=== PATIENT | female | born 1955 | race Caucasian/White ===

== ENCOUNTER 2017-11-22 05:12 | Day surgery (SDC) | payer MEDICARE ==
[~2017-11-22] VITALS: Ht 154.9 cm; Wt 68.0 kg
--- NOTE | ~2017-11-22 | OP ---
PATIENT NAME: CHERELLE ROSSI MEDICAL RECORD: [id number] :55 LOCATION:[facility] ADMISSION DATE: SURGEON: LEYDA HODGES, KRISTEN DICKEY DATE OF OPERATION: 11/22/2017 PREOPERATIVE DIAGNOSES: 1. Rotator cuff tear of the right shoulder. 2. Biceps tendinitis of the right shoulder. 3. Acromioclavicular arthritis of the right shoulder. 4. Impingement syndrome of the right shoulder. POSTOPERATIVE DIAGNOSES: 1. Rotator cuff tear of the right shoulder. 2. Biceps tendinitis of the right shoulder. 3. Acromioclavicular arthritis of the right shoulder. 4. Impingement syndrome of the right shoulder. PROCEDURES: 1. Arthroscopic rotator cuff repair. 2. Arthroscopic biceps tenodesis. 3. Arthroscopic distal clavicle excision done through separate incision -- 1 cm. 4. Arthroscopic subacromial decompression, acromioplasty, and bursectomy. SURGEON: Kristen Delacruz MD ANESTHESIA: General. INTRAOPERATIVE COMPLICATIONS: None. SUMMARY OF PATHOLOGIC FINDINGS: The patient actually had 2 rotator cuff tears, severe biceps tendinitis, downward sloping of the acromion with excoriation of the coracoacromial ligament as well as a grade IV chondromalacia of the acromioclavicular joint. OPERATIVE SUMMARY IN DETAIL: After obtaining the appropriate preoperative orthopedic surgery consent as well as anesthetic consultation, evaluation, and clearance, the patient was brought to the operating room and placed on the operating table in supine position. After general laryngeal mask airway was administered, the patient was placed in left lateral decubitus position. All pressure points were well padded to include down leg peroneal pad as well as axillary roll. The patient was held firmly to the operating table using the vacuum pack suction system. Right upper extremity and shoulder were then prepped and draped in a routine sterile fashion. The arm was held in the Arthrex traction boom at 30 degrees of forward flexion, 30 degrees of abduction with 10 pounds of traction laterally. Arthroscopy was established in the glenohumeral joint. The glenohumeral joint itself was essentially pristine. I did not appreciate a rotator cuff tear from the articular side of the rotator cuff. The biceps tendon did have severe biceps tendinitis. Arthroscopy was then established in the subacromial space. While on subacromial space, the Superior tissue ablation system was utilized to denude the undersurface of the acromion of all soft tissue elements. A 5-0 barrel bur was used to perform acromioplasty at the level of acromioclavicular joint. Further inspection at this point showed the rotator cuff tear directly over the biceps tendon as well as more posteriorly and lateral at the posterior aspect of the supraspinatus OPERATIVE REPORT [id number] CHERELLE ROSSI. At this point, through a separate anterior arthroscopic portal under direct arthroscopic visualization, 1 cm of the distal clavicle was excised. Next, the biceps tendon was grasped, held firmly while a Scorpion was used to pass FiberTape to the biceps tendon. The biceps tendon was then released using the same FiberTape to maintain the appropriate tension. The biceps was tenodesed in the middle aspect of the bicipital groove. The 2 tails of this were then used to reapproximate the rotator cuff tear over the biceps tendon in a running baseball type stitch. This was anchored laterally using a 4.75 SwiveLock. The tails of this were then used to fix the second small rotator cuff tear after decortication of the supraspinatus tendinous footprint. This was anchored laterally again using a 4.75 SwiveLock from Arthrex. Having completed this, arthroscopy portals were closed in routine interrupted fashion. Sterile dressings were applied. The patient was awakened and taken to the recovery room in stable condition. All final needle and sponge counts were correct. TRANSINT:[id number] Voice Confirmation ID: [id number] DOCUMENT ID: [id number] LEYDA HODGES, KRISTEN DICKEY CC: [id number] DICTATION DATE: 11/22/17828 SEAT COVER CUTTER: 11/22/[address] [facility] 11/22/17 [facility] [address] [place] [address]
[~2017-11-22 05:12] MED LIST: ATIVAN1 MG PO; COZAAR100 MG PO; CYCLOBENZAPRINE10 MG PO; DESERYL100 MG PO; FUROSEMIDE20 MG; LOMOTIL TABLET1 TAB PO; NORCO 7.5/325 T1 TA1 PO; NORVASC5 MG PO; PANTOPRAZOLE SOD DR; PHENERGAN25 M1 PO; PRAVASTATIN SOD10 MG PO; PROPRANOLOL HCL80 MG PO; PROZAC40 MG PO
[2017-11-22] MEDS ORDERED: PROTONIX40 MG PO (06:08)
[2017-11-22 06:11] VITALS: BP 116/75; Ht 154.9 cm; Wt 68.0 kg
[2017-11-22 06:30] LABS: HEMATOCRIT 41.1 % (36.0-48.0); MCHC 31.6 g/dL (31.0-37.0); MCV 94.9 fL (80.0-100.0); MEAN PLATELET VOLUME 10.2 fL (7.4-10.4); RBC 4.33 10x6/uL (4.00-5.40); RDW 13.4 % (11.5-14.5)
[2017-11-22] MEDS ORDERED: PERCOCET 10/3251 TA1 PO (08:25)
== END 2017-11-22 10:30 | disposition home or self-care (01) ==
LOC: D.OPS 05:12 → D.PAN 07:30 → D.OPS 08:10
PROVIDERS: Anesthesiology
DX: M75.101 Unspecified rotator cuff tear or rupture of right shoulder, not specified as traumatic (principal); M75.21 Bicipital tendinitis, right shoulder; M13.811 Other specified arthritis, right shoulder; M75.41 Impingement syndrome of right shoulder; Z01.812 Encounter for preprocedural laboratory examination

== ENCOUNTER → 2019-12-15 12:48 | Outpatient (CLI) | payer MEDICARE ==
[2017-11-22 06:11] VITALS: BMI 28.4
[~2019-12-15 12:48] MED LIST changes: +PERCOCET 10/3251 TA1 PO; +PROTONIX40 MG PO
== END | disposition home or self-care (01) ==
LOC: D.MRI 12-04 14:30
PROVIDERS: ATTEND Clinical Nurse Specialist Family Health
DX: M25.561 Pain in right knee (principal)

== ENCOUNTER 2020-06-12 12:15 | Observation (INO) | payer MEDICARE ==
[~2020-06-12] VITALS: Ht 152.4 cm; Wt 81.8 kg
[2020-06-12] VITALS (8 sets, daily range): BP systolic 106–143; BP diastolic 58–65
--- NOTE | ~2020-06-12 | HEMODYNAMI ---
PATIENT:CHERELLE ROSSI MEDICAL RECORD: [id number] : 55 LOCATION:[facility] D.2119 ADMISSION DATE: 06/12/20 Generatedon:06/13/202015:37 Patient name: CHERELLE ROSSI Patient #: [id number] SSN: : 09/1955 Date of study: 06/13/2020 Page: Of Hemodynamic Procedure Report Patient Data Patient Demographics Procedure consent was obtained First Name: CHERELLE Gender: Female Last Name: FLO : 1955 [facility] Initial: C Age: 65 year(s) Patient #: [id number] Race: Additional ID: [id number] Contact details [address]: [address] [place] [address] State: [place] City: [place] Zip code: [address] Past Medical History Allergies Allergen Reaction Date Comments Reported Other allergy 06/13/2020 EGGS,VENAFAXINE HCL Admission Admission Data Admission Date: 06/12/2020 Admission Time: 23:22 Room #: D.2119 Height (in.): 59.84 BSA: 1.78 (m2) Height (cm.): 152 BMI: 35.49 (kg/m2) Weight (lbs.): 180.78 Weight (kg.): 82 Lab Results Lab Result Date: 06/13/2020 Lab Result Time: 0:00 Biochemistry Name Units Result Min Max BUN mg/dl 11 --(-*--)-- 7 18 Creatinine mg/dl 0.8 --(-*--)-- 0.6 1.3 eGFR ml/min 76.84404 *-(----)-- 90 120 NONAFRICAN CBC Name Units Result Min Max Hematocrit % 42.9 --(*---)-- 42 54 Hemoglobin g/dl 13.6 --(*---)-- 13.5 17.5 Procedure Procedure Types Cath Procedure Diagnostic Procedure [facility] w/Coronaries Sedation Charges Moderate Sedation up to 15 minutes PCI Procedure Coronary Stent Coronary Stent Initial Hemochron ACT Test Procedure Description Procedure Date Procedure Date: 06/13/2020 Procedure Start Time: 15:11 Procedure End Time: 15:29 Procedure Staff Name Function Meeta Aminen RT Mental Health Program Director Ari Jean MD Performing Physician Toshia Ayers RT Monitor Marta Garcia RN Nurse Noa Boyd RT Scrub Indication Chest pain Procedure Data Cath Procedure Fluoroscopy Diagnostic fluoroscopy Total fluoroscopy Time: 3 time: 3 min min Diagnostic fluoroscopy Total fluoroscopy dose: 385 dose: 385 mGy mGy Contrast Material Contrast Material Type Amount (ml) Isovue 300 78 Entry Location Entry Primary Successful Side Size Upsize Upsize Entry Closure Succes sful Closure Location (Fr) 1 (Fr) 2 (Fr) Remarks Device Remarks Femoral Right 5 Fr 6 Fr Exoseal artery Short Estimated blood loss: 10 ml Diagnostic catheters Device Type Used For End Catheter Placement MULTIPACK JL 4.0 5Fr Procedure catheter MULTIPACK 3DRC 5Fr Procedure catheter MULTIPACK Pigtail 5 Fr Ventriculography catheter Procedure Medications Medication Administration Route Dosage Oxygen NC 2 l/min Heparin Flush Bag added to field 2 bags (1000units/500ml NS) Lidocaine 2% added to field 20 0.9% NaCl I.V. 100 ml/hr Versed I.V. 1 mg Fentanyl 50 mcg Heparin Bolus I.V. 5000 units Versed I.V. 1 mg Fentanyl 50 mcg Integrilin (Bolus I.V. 7.9 ml 2mg/ml) Hemodynamics Rest HGB: 13.6 (g/dl) Heart Rate: 93 (bpm) Pressure Samples Time Site Value (mmHg) Purpose Heart Use Rate(bpm) 15:16 LV 118/11,13 Snapshot 79 Gradients Valve Time Site Site Mean SEP/DFP Peak To Heart Use 1 2 (mmHg) (sec/min) Peak Rate (mmHg) (bpm) Aortic 15:16 LV AO 78 Snapshots Pre Cath Intra NCS Post Cath Vital Signs Time Heart Resp SPO2 etCO2 NIBP Rhythm Pain Sedation Rate (ipm) (%) (mmHg) (mmHg) Status Level (bpm) 15:01:34 91 19 98 23.6 133/65(86) NSR 0 (11) 10(A) , No pain 15:05:50 89 21 98 33.2 128/63(81) NSR 0 (11) 10(A) , No pain 15:10:04 85 23 96 25.1 114/58(82) NSR 0 (11) 10(A) , No pain 15:14:18 76 22 95 30.2 115/53(71) NSR 0 (11) 10(A) , No pain 15:18:32 76 21 94 27.3 106/51(70) NSR 0 (11) 9(A) , No pain 15:22:46 77 20 94 36.1 89/40(59) NSR 0 (11) 9(A) , No pain 15:26:54 80 17 96 25.8 107/56(73) NSR 0 (11) 9(A) , No pain 15:32:26 77 20 96 16.2 105/54(81) NSR 0 (11) 9(A) , No pain Medications Time Medication Route Dose Verified Delivered Reason Notes Ef fectiveness by by 15:00:40 Oxygen NC 2 Ari Marta [facility] MEND[facility] 15:00:49 Heparin Flush added 2 Ari Marta used for Bag to bags [facility] procedure (1000units/500ml field HODGES RN NS) 15:00:58 Lidocaine 2% added 20ml Ari Marta for local to vial [facility] anesthetic field MD MENDES 15:01:13 0.9% NaCl I.V. 100 Ari Marta used for ml/hr [facility] procedure MD MENDES 15:12:38 Versed I.V. 1 mg Ari Marta for [facility] sedation MD MENDES 15:12:46 Fentanyl 50 Ari Marta for mcg [facility] sedation MD MENDES 15:18:11 Heparin Bolus I.V. 5000 Ari Marta Per verified units [facility] physician with dr. MD MENDES [place] 15:21:14 Versed I.V. 1 mg Ari Marta for [facility] sedation MD MENDES 15:21:19 Fentanyl 50 Ari Marta for mcg [facility] sedation MD MENDES 15:21:24 Integrilin I.V. 7.9 Ari Marta Per 2.1 ml (Bolus 2mg/ml) ml [facility] physician wasted MD MENDESroller painter Log Time Note 14:46:30 Informed consent obtained and on chart 14:47:36 Indication : Chest pain 14:47:58 Marta Garcia RN sent for patient. Start room use. 14:48:02 Time tracking: Regular hours (M-F 7:00 - 5:00) 14:48:08 Procedure Status Urgent Heart Cath (IP). 14:48:17 Plan of Care:Hemodynamics will remain stable., Cardiac rhythm will remain stable., Comfort level will be maintained., Respiratory function will remain adequate., Patient/ family verbilizes understanding of procedure., Procedure tolerated without complication., Recovers from procedure without complications.. 14:49:12 Lab Result : Hemoglobin 13.6 g/dl 14:49:12 Lab Result : Hematocrit 42.9 % 14:49:12 Lab Result : eGFR NONAFRICAN 76.20968 ml/min 14:49:12 Lab Result : BUN 11 mg/dl 14:49:12 Lab Result : Creatinine 0.8 mg/dl 14:49:23 Patient Height : 59.84 inches 14:49:28 Patient Weight : 180.78 lbs 14:50:37 Patient allergic to Other allergyEGGS,VENAFAXINE HCL 14:50:46 H&P Date Dictated: 06/13/2020 Within 30 days and on chart., ER History on chart.. 14:51:48 Warm blankets applied, and pau hugger turned on for patient comfort. 14:52:35 Patient received from Med II to CCL 1 Alert and oriented. Tansferred to table in Supine position. 14:52:37 Correct patient and procedure confirmed by team. 15:00:23 Vital chart was started 15:00:40 Oxygen 2 l/min NC was administered by Marta Garcia RN; for low 02 sats; Verbal order read back and verified. 15:00:49 Heparin Flush Bag (1000units/500ml NS) 2 bags added to field was administered by Marta Garcia RN; used for procedure; Verbal order read back and verified. 15:00:58 Lidocaine 2% 20ml vial added to field was administered by Marta Garcia RN; for local anesthetic; Verbal order read back and verified. 15:01:01 Baseline sample Acquired. 15:01:03 Full Disclosure recording started 15:01:05 Pre-procedure instructions explained to patient. 15:01:07 Family unavailable. 15:01:09 Patient NPO since Midnight. 15:01:13 0.9% NaCl 100 ml/hr I.V. was administered by Marta Garcia RN; used for procedure; Verbal order read back and verified. 15:01:16 Was the patient premedicated? Yes 15:01:20 Patient diabetic? Unknown. 15:01:31 Snore? Yes 15:01:33 Sleep apnea? No 15:01:36 Dentures? Yes ? 15:01:46 Patient pain scale 0/10 ?. 15:01:53 IV patent on arrival in left forearm with 0.9% NaCl at [facility]. 15:01:58 Lab results completed and on chart. 15:02:03 Right groin area was prepped with chlora-prep and draped in sterile fashion 15:02:04 Alarms reviewed by R. N. 15:02:06 Sharps counted by scrub and verified by R.N. 15:03:02 Physician arrived 15:03:07 Use device set Femoral Dx 15:03:08 ACIST Syringe (20765) opened to sterile field. 15:03:09 Medline Cath Pack ([id number]) opened to sterile field. 15:03:09 Bag Decanter (2002S) opened to sterile field. 15:03:10 ACIST Hand Control (86167) opened to sterile field. 15:03:11 DIAGNOSTIC Multipack 5Fr catheter set (CU8464) opened to sterile field. 15:03:11 ACIST Manifold (69563) opened to sterile field. 15:03:14 EMERALD Guide Wire (243-556) opened to sterile field. 15:03:14 SHEATH 5FR [place] (TKD439) opened to sterile field. 15:09:23 Zero performed for pressure channel P1 15:09:31 --------ALL STOP TIME OUT------ 15:09:32 Final Timeout: patient, procedure, and site verified with staff and physician. All members of the team are in agreement. 15:09:34 Right groin site verified by team. 15:09:39 Fire Safety Assessment: A--An alcohol-based skin anteseptic being used preoperatively., C--Open oxygen or nitrous oxide is being used., D--An ESU, laser, or fiber-optic light is being used. 15:09:49 Physical assessment completed. ASA score P 2 - A patient with mild systemic disease as per Ari Jean MD. 15:09:52 2) 60-89 Mildly reduced kidney function, and other findings (as for stage 1) point to kidney disease. 15:10:44 Maximum allowable contrast dose (3.7 X eGFR X 0.75)210 ml. 15:10:49 Sedation plan: IV Moderate Sedation Medication:Versed, Fentanyl 15:10:54 Procedure started. 15:11:28 Local anesthetic to right femoral artery with Lidocaine 2% by Ari Jean MD.INITIAL ACCESS ONLY 15:11:35 A 5 Fr sheath was inserted into the Right Femoral artery 15:11:51 A MULTIPACK JL 4.0 5Fr catheter was advanced over the wire and used for Procedure. 15:12:15 LCA angiography performed. 15:12:38 Versed 1 mg I.V. was administered by Marta Garcia RN; for sedation; Verbal order read back and verified. 15:12:46 Fentanyl 50 mcg was administered by Marta Garcia RN; for sedation; Verbal order read back and verified. 15:13:40 Catheter removed. 15:13:47 A MULTIPACK 3DRC 5Fr catheter was advanced over the wire and used for Procedure. 15:13:51 RCA angiography performed. 15:14:46 Catheter removed. 15:15:36 A MULTIPACK Pigtail 5 Fr catheter was advanced over the wire and used for Ventriculography. 15:15:50 SHEATH 6FR [place] (NVU001) opened to sterile field. 15:16:10 EF : 55 % 15:16:14 LV gram done using SOTO 15:16:16 Catheter removed. 15:16:20 Proceeding to intervention. 15:16:39 GUIDE 6FR HS I SH catheter ([id number]) opened to sterile field. 15:16:41 INFLATOR Merit BasixCompak (VN3756) opened to sterile field. 15:16:42 BMW 300cm [place] 2 J wire ([id number]) opened to sterile field. 15:17:04 Sheath upsized to a 6 Fr Short. 15:17:15 6 Fr hs1 guide catheter was inserted over the wire 15:17:19 BMW wire advanced. 15:18:11 Heparin Bolus 5000 units I.V. was administered by Marta Garcia RN; Per physician; verified with dr. jean Verbal order read back and verified. 15:19:58 Wire advanced across lesion. 15:21:14 Versed 1 mg I.V. was administered by Marta Garcia RN; for sedation; Verbal order read back and verified. 15:21:19 Fentanyl 50 mcg was administered by Marta Garcia RN; for sedation; Verbal order read back and verified. 15:21:24 Integrilin (Bolus 2mg/ml) 7.9 ml I.V. was administered by Marta Garcia RN; Per physician; 2.1 ml wasted Verbal order read back and verified. 15:23:38 Place stent Inflation Number: 1 A INTEGRITY RX 3.5 x 09 stent ([id number]) was prepped and advanced across the Prox RCA 80. The stent was deployed at 14 NOHEMY for 0:20 (min:sec) . 15:24:10 EXOSEAL 6Fr (EX600) opened to sterile field. 15:24:22 Stent catheter was removed intact over wire. 15:24:27 Guide catheter removed. 15:24:39 Sheath removed intact; hemostasis achieved with Exoseal to the Right Femoral artery. 15:25:51 Procedure ended.(Physican Out) 15:26:05 Fluoroscopy time 03.00 minutes. 15:26:12 Fluoroscopy dose: 385 mGy 15:26:12 Flurop Dose total: 385 15:26:16 Dose Area Product 68167 mGy/cm. 15:26:22 Contrast amount:Isovue 300 78ml. 15:26:25 Maximum allowable dose exceeded? No. 15:26:27 Sharps counted by scrub and verified by R.N. 15:26:35 Insertion/operative site no bleeding no hematoma. 15:26:40 Post right femoral artery:stable 15:26:42 Post Procedure Pulses reassessed and unchanged 15:26:47 Post-procedure physical assessment completed. ASA score P 2 - A patient with mild systemic disease as per Ari Jean MD. 15:26:50 Post procedure rhythm: sinus rhythm 15:26:55 Estimated blood loss: 10 ml 15:27:01 Post procedure instruction explained to patient.Patient verbalizes understanding. 15:28:07 Procedure type changed to Cath procedure, Diagnostic procedure, LHC, LHC w/Coronaries, Sedation Charges, Moderate Sedation up to 15 minutes, PCI procedure, Coronary Stent, Coronary Stent Initial, Hemochron ACT Test 15:29:05 Procedure and supply charges have been captured, reviewed, submitted and are correct. 15:29:09 Vital chart was stopped 15:29:14 [facility] Findings: MVD- PCI performed (see procedure note) 15:29:21 See physician's report for complete and final results. 15:29:24 Report given to Med II. 15:29:30 Full Disclosure recording stopped 15:29:30 Procedure ended. 15:29:41 ACC-PCI Only Patient was given prescriptions, or instructed by Ari Jean MD to start/continue the following medications upon discharge: Plavix 15:29:43 End room use (Document Last) 15:29:57 ACT drawn and resulted at 252 seconds. (normal therapeutic range 180-240 seconds). Intervention Summary Intervention Notes Time ActionType Lesion and Equipment Action# Pressure Duration Attributes Used 15:23:[address] Place stent Prox RCA INTEGRITY RX 1 14 00:20 3.5 x 09 stent ([id number]) Device Usage Item Name Manufacture Quantity Catalog Hospital Part Current Minimal Lot# / Number Charge Number Stock Stock Serial# Code ACIST Acist 1 83714 532216 [id number] [id number] 20 Syringe Medical (05924) Systems Inc Bag Decanter Microtek 1 2002S 688551 06040 499981 5 (2001S) Medical Inc. Medline Cath Medline 1 [id number] 332606 50817 213841 5 Pack ([id number]) ACIST Hand Acist 1 33493 610993 822405 313187 5 Control Medical (15993) Systems Inc ACIST Acist 1 01447 434998 546180 715956 5 Manifold Medical (29073) Systems Inc DIAGNOSTIC Cardinal 1 [id number] 586545 16081 240845 30 Multipack Health 5Fr catheter set (AU9835) SHEATH 5FR Terumo 1 JET889 086557 717782 385311 5 [place] (KXB734) EMERALD Cardinal 1 502-455 248740 381076 576635 5 Guide Wire Health (502-455) MULTIPACK JL Cardinal 1 695228 5 4.0 5Fr Health catheter MULTIPACK Cardinal 1 749026 5 3DRC 5Fr Health catheter MULTIPACK Cardinal 1 312634 5 Pigtail 5 Fr Health catheter SHEATH 6FR Terumo 1 [id number] 614289 536272 911006 40 [place] (OHE661) GUIDE 6FR HS Medtronic 1 [id number] 837421 45256 285932 1 I SH catheter ([id number]) INFLATOR Merit 1 KN3474 597905 622891 151530 15 Merit Medical BasixCompak (HU6871) BMW 300cm Estevez 1 [id number] 809318 269645 134673 5 [place] 2 Vascular J wire ([id number]) INTEGRITY RX Medtronic 1 [id number] 332538 526065 799842 5 [id number] 3.5 x 09 stent ([id number]) EXOSEAL 6Fr Cardinal 1 EX600 182102 694167 111428 10 (EX600) Health Signature Audit [place] Stage Time Signature Unsigned Intra-Procedure 06/13/2020 Toshia Ayers 3:30:22 PM RT(R) Intra-Procedure 06/13/2020 Marta 3:31:07 PM Radha MENDES Intra-Procedure 06/13/2020 Toshia Ayers 3:34:03 PM RT(R) RT(R) 06/13/2020 3:36:30 PM Intra-Procedure 06/13/2020 Toshia Ayers 3:36:42 PM RT(R) Intra-Procedure 06/13/2020 Matra 3:37:10 PM Radha MENDES Intra-Procedure 06/13/2020 Ari Gramajo 3:37:29 PM Shemar HODGES [facility] [address] [place] [address]
[2020-06-12 12:39] LABS: BILIRUBIN NEGATIVE (NEGATIVE); KETONE MODERATE mg/dL (NEGATIVE); NITRITE POSITIVE (NEGATIVE); UROBILINOGEN NORMAL (NORMAL)
[2020-06-12 12:40] LABS: RED CELLS - URINE 0-5 /hpf (0-5)
[2020-06-12 12:41] LABS: BACTERIA FEW /hpf (NEGATIVE); EPITHELIAL CELLS 0-5 /hpf (0-5)
[2020-06-12 12:42] LABS: UDS - AMPHET NEGATIVE QUAL (NEGATIVE); UDS - BARB NEGATIVE QUAL (NEGATIVE); UDS - BENZO NEGATIVE QUAL (NEGATIVE); UDS - COCAINE NEGATIVE QUAL (NEGATIVE); UDS - OPIATE NEGATIVE QUAL (NEGATIVE); UDS - PCP NEGATIVE QUAL (NEGATIVE); UDS - THC NEGATIVE QUAL (NEGATIVE)
[2020-06-12 12:51] LABS: BASOPHILS 0.1 % (0-2); EOSINOPHILS 0.3 % (0-7); HEMATOCRIT 46.9 % (36.0-48.0); HEMOGLOBIN 15.3 g/dL (12-16); IMMATURE GRANULOCYTES 0.3 % (0-5); LYMPHOCYTES 18.2 % (15-50); MCH 29.9 pg (26.0-34.0); MCHC 32.6 g/dL (31.0-37.0); MCV 91.8 fL (80.0-100.0); MEAN PLATELET VOLUME 10.3 fL (7.4-10.4); MONOCYTES 7.9 % (2-11); NEUTROPHILS 73.2 % (40-80); PLATELET COUNT 153 10x3/uL (130-400); RBC 5.11 10x6/uL (4.00-5.40); RDW 12.7 % (11.5-14.5)
[2020-06-12 12:59] LABS: APTT 26.7 SECONDS (22.8-39.4); INR 1.08 (0.85-1.17)
[2020-06-12 13:14] LABS: ALBUMIN 2.9 g/dL (3.4-5.0); ALKALINE PHOSPHATASE 87 U/L (30-120); ALT (SGPT) 9 U/L (10-68); BILIRUBIN - TOTAL 1.45 mg/dL (0.2-1.3); CALCIUM 8.4 mg/dL (8.5-10.1); CARBON DIOXIDE 27.8 mmol/L (21.0-32.0); CHLORIDE - SERUM 101 mmol/L (98-107); CKMB 0.5 U/L (0.0-3.6); CREATINE KINASE 35 UL (21-215); CREATININE - SERUM 0.8 mg/dL (0.6-1.3); MAGNESIUM - SERUM 1.5 mg/dL (1.8-2.4); PROTEIN - SERUM 6.8 g/dL (6.4-8.2); SODIUM 138 mmol/L (136-145); TROPONIN-I < 0.017 ng/mL (0.000-0.060); UREA NITROGEN 8 mg/dL (7-18); eGFR NON AFRICAN AMERICAN 76 mL/min (90-120)
[2020-06-12 13:22] LABS: CALC OSMOLALITY 276 mosm/kg (275-300); GLUCOSE 154 mg/dL (74-106); LIPASE 28 U/L (73-393)
[2020-06-12 13:24] LABS: POTASSIUM - SERUM 2.8 mmol/L (3.5-5.1)
[2020-06-12] MEDS ORDERED: IMITREX100 MG PO (15:46)
--- NOTE | 2020-06-12 19:10 | NUR ---
REPORT TO CINTHYA MCINTRYE.
[2020-06-12 23:50] LABS: CKMB 0.4 U/L (0.0-3.6); CREATINE KINASE 34 UL (21-215); TROPONIN-I < 0.017 ng/mL (0.000-0.060)
[2020-06-13 01:54] VITALS: Ht 152.4 cm; Wt 81.8 kg
[2020-06-13 04:00] VITALS: BP 115/70
[2020-06-13 07:09] LABS: BASOPHILS 0.1 % (0-2); EOSINOPHILS 0.5 % (0-7); HEMATOCRIT 42.9 % (36.0-48.0); HEMOGLOBIN 13.6 g/dL (12-16); IMMATURE GRANULOCYTES 0.2 % (0-5); LYMPHOCYTES 27.7 % (15-50); MCH 29.7 pg (26.0-34.0); MCHC 31.7 g/dL (31.0-37.0); MCV 93.7 fL (80.0-100.0); MEAN PLATELET VOLUME 10.6 fL (7.4-10.4); MONOCYTES 9.1 % (2-11); NEUTROPHILS 62.4 % (40-80); PLATELET COUNT 162 10x3/uL (130-400); RBC 4.58 10x6/uL (4.00-5.40)
[2020-06-13 07:16] LABS: WBC 8.2 10x3/uL (4.8-10.8)
[2020-06-13 07:18] LABS: ALBUMIN 2.6 g/dL (3.4-5.0); ALKALINE PHOSPHATASE 74 U/L (30-120); ALT (SGPT) 11 U/L (10-68); BILIRUBIN - TOTAL 1.04 mg/dL (0.2-1.3); CALCIUM 8.2 mg/dL (8.5-10.1); CARBON DIOXIDE 28.9 mmol/L (21.0-32.0); CHLORIDE - SERUM 105 mmol/L (98-107); CREATININE - SERUM 0.8 mg/dL (0.6-1.3); MAGNESIUM - SERUM 1.7 mg/dL (1.8-2.4); PROTEIN - SERUM 6.2 g/dL (6.4-8.2); SODIUM 140 mmol/L (136-145); eGFR NON AFRICAN AMERICAN 76 mL/min (90-120)
[2020-06-13 07:31] LABS: CALC OSMOLALITY 277 mosm/kg (275-300); GLUCOSE 105 mg/dL (74-106); POTASSIUM - SERUM 4.6 mmol/L (3.5-5.1); UREA NITROGEN 11 mg/dL (7-18)
[2020-06-13 09:08] LABS: CHOL - HDL RATIO 2.8 ratio (2.3-4.1); LDL-HDL RATIO 1.5 ratio (1.5-3.5)
[2020-06-13 09:59] VITALS: BP 119/57
--- NOTE | 2020-06-13 10:00 | NUR ---
CONSENTS SIGNED FOR [facility]. WILL CONT. PLAN OF CARE.
[2020-06-13 11:35] VITALS: BP 133/60
--- NOTE | 2020-06-13 15:02 | NUR ---
PRE-OPS GIVEN. TO SENIOR CLINICAL SAS PROGRAMMER BY BED.
[2020-06-13] MEDS ORDERED: PLAVIX75 MG PO (15:44)
[2020-06-13] MEDS ORDERED: MACROBID100 MG PO (15:49)
--- NOTE | 2020-06-13 16:01 | NUR ---
BACK FROM COMMISSARY AGENT. VS WNL. RIGHT GROIN STABLE WITHOUT BLEEDING OR HEMATOMA NOTED. WILL MONITOR.
[2020-06-13 16:09] VITALS: BP 99/46
--- NOTE | 2020-06-14 08:09 | OP ---
PATIENT NAME: CHERELLE ROSSI MEDICAL RECORD: [id number] :55 LOCATION:D.M2 D.2119 ADMISSION DATE:06/12/20 SURGEON: LARRY QUEEN MD DATE OF OPERATION: 06/13/2020 PROCEDURE: Left heart cath, selective coronary angiography, right femoral artery approach. CATHETERS: A 5-Guinean sheath, 5/4 left and right Valeriano, 5/4 pig. The procedure was well tolerated. We proceeded with PTCA stenting, ostial, right. FINDINGS: Left ventriculography in 30-degree SOTO view: Normal wall motion. Normal systolic function. CORONARY ANATOMY: LEFT MAIN: Free of disease. LAD: Free of disease in the diagonal system. CIRCUMFLEX: Free of disease in the marginal system. RIGHT CORONARY ARTERY: Following placement of the diagnostic catheter, there was marked damping of the ostial lesion. Additionally, the patient went into 2:1 block promptly. IMPRESSION: Plan intervention of the right momentarily. DESCRIPTION OF PROCEDURE: A 5-Guinean sheath was exchanged for a 6-Guinean sheath. A hockey stick with side holes provided excellent guide catheter support followed by a 300 cm BMW wire, which was placed across the 90% stenosed ostium of the right down the distal portion of the vessel. Stent deployed was a 9 x 3.5 Integrity drug-eluting stent up to 14 atmospheres. Final angiography shows excellent resolution of 90% stenosis. No significant residual. BELINDA flow was 3 throughout the procedure. Heparin and Integrilin were used during the case. Sheath was closed with ExoSeal device. Plavix was loaded in the lab. NTS:[id number] Voice Confirmation ID: [id number] DOCUMENT ID: [id number] LARRY QUEEN MD at 0809 CC: [id number] DICTATION DATE: 06/13/20 1532 CRACKING MACHINE OPERATOR: 06/13/20 1829 DIS IN 06/13/20 [facility] [address] [place] [address]
--- NOTE | 2020-06-14 08:09 | CN ---
PATIENT NAME:CHERELLE ROSSI MEDICAL RECORD: [id number] : 55 LOCATION:[facility]Deep D.2119 ADMIT DATE: 06/12/20 ACCOUNT: [id number] CONSULTING PHYSICIAN: LARRY QUEEN MD REFERRING PHYSICIAN: LEIDY GIBBS DO DATE OF CONSULTATION: 06/13/2020 HISTORY OF PRESENT ILLNESS: A 65-year-old female with no known history of coronary artery disease, has a history of hypertension, hyperlipidemia, has been noticing increasing effort intolerance over the past 2 weeks, had chest tightness and pressure yesterday accompanied by shortness of breath, nausea, diaphoresis has resolved spontaneously, improved with nitroglycerin in the ER. Noted to have dynamic ST-T segment changes inferolaterally. We are asked to see her concerning her cardiovascular status. PAST MEDICAL HISTORY: Includes; 1. History of hypertension. 2. Hyperlipidemia. 3. Gastroesophageal reflux disease. MEDICATIONS: Include Protonix 40 mg p.o. every day, trazodone 100 at bedtime, Imitrex 100 every day, Prozac 40 every day, amlodipine 5 every day, propranolol 80 b.i.d., pravastatin 10 every day, losartan 100 every day, Flexeril 10 before meals and at bedtime p.r.n. ALLERGIES: EFFEXOR. SOCIAL HISTORY: Nonsmoker, nondrinker. Easily able to care of all her ADLs. REVIEW OF SYSTEMS: The patient reports easy bruising but reports no swollen glands. The patient reports no fever, no night sweats, no significant weight gain, no significant weight loss. No significant exercise tolerance. The patient reports no dry eyes, no irritation, no vision change. Patient reports no difficulty hearing and no ear pain. Patient reports no frequent nose bleeds or nose and sinus problems. Patient reports on arm pain on exertion. No shortness of breath while lying down. No history of heart murmur. Patient reports no cough, no wheezing or coughing up blood. Patient reports no abdominal pain, no vomiting. Normal appetite. No diarrhea and not vomiting blood. No nausea and no constipation. Patient reports no incontinence. No difficulty urinating. No hematuria. No increased frequency. Patient reports no muscle aches. No weakness, no arthralgias, no back pain. No swelling of the extremities. Patient reports no abnormal mole, no jaundice, no rashes. Reports no loss of consciousness. No weakness and no numbness. No seizures, dizziness, or headaches. The patient reports no depression, no sleep disturbance, feeling safe in a relationship and no alcohol abuse. Patient reports on fatigue. Reports no runny nose or sinus pressure. No itching, no hives, and no frequent sneezing. PHYSICAL EXAMINATION: GENERAL: Pleasant, in no acute distress, appears stated age. VITAL SIGNS: Blood pressure 115/70, pulse 88 and regular. HEENT: Normocephalic, atraumatic. NECK: No JVD or bruit. HEART: Regular, II/ systolic ejection murmur. LUNGS: Good air excursion. CONSULT REPORT [id number] CHERELLE ROSSI ABDOMEN: Soft, nontender. EXTREMITIES: Pulses 2+. There is no edema. DIAGNOSTIC DATA: EKG shows nonspecific ST-T changes inferolaterally. IMPRESSION: Acute coronary syndrome with multiple risk factors and EKG changes. PLAN: For angiography, intervention based on the above. TRANSINT:[id number] Voice Confirmation ID: [id number] DOCUMENT ID: [id number] LARRY QUEEN MD at 0809 CC: [id number] DICTATION DATE: 06/13/20 0835 KST OPERATOR: 06/13/20 1138 DIS IN 06/13/20 [id number] [place] [address]
--- NOTE | 2020-06-14 14:57 | MORECARE ---
CASE MANAGEMENT DISCHARGE SUMMARY PATIENT: CHERELLE ROSSI UNIT: [id number] ADM DATE: 06/12/20 AGE: 65 : 55 SEX: F ROOM/BED: D.1947 AUTHOR: CHRISTO FOLEY PHYSICIAN: REFERRING PHYSICIAN: LEIDY GIBBS DO DATE OF SERVICE: 06/14/20 Discharge Plan Patient Name: CHERELLE ROSSI [facility] [facility] 1955 Planned Disposition: Anticipated Discharge Date: Discharge Date: 06/13/2020 Expected LOS: 0 Initial Reviewer: [id number] Initial Review Date: 06/14/2020 Generated: 06/14/20 3:57 pm Coverage Notice Reviewer: [id number] - Donya Richmond Notice Issued Date-Time: 06/13/2020 9:19 Notice Type: Medicare Outpatient Observation Notice Notice Delivered To: Patient Relationship to Patient: [employer] Name: Delivery Method: HAND - Hand Delivered [place] Days: Prior Verbal Notification: Recipient Understood Notice: Yes Recipient Signature: Yes Med Rec Note Co-signed by Attending: Coverage Notice Comment: Patient Name: CHERELLE ROSSI Page [phone] at 1457 All edits/amendments must be made on the electronic document DICTATION DATE: 06/14/201456 EDUCATIONAL ADMINISTRATOR: CHICHI 06/14/20 1457 RPT#: [id number] DC DATE:06/13/20 STATUS: DIS IN [id number] [place] [address] END OF REPORT
== END 2020-06-13 20:54 | disposition home or self-care (01) ==
LOC: D.ER 12:15 → D.M2 23:22 → OBSVTIME 06-13 20:53 → D.M2 06-13 20:54
PROVIDERS: Emergency Medicine; Internal Medicine Interventional Cardiology; ADMIT Family Medicine; ATTEND Family Medicine
DX: R07.89 Other chest pain (principal); R00.0 Tachycardia, unspecified; R94.31 Abnormal electrocardiogram [ECG] [EKG]; I20.0 Unstable angina; G43.909 Migraine, unspecified, not intractable, without status migrainosus; F41.9 Anxiety disorder, unspecified; E87.6 Hypokalemia; E83.42 Hypomagnesemia; E80.6 Other disorders of bilirubin metabolism; I10 Essential (primary) hypertension; M19.90 Unspecified osteoarthritis, unspecified site; M79.7 Fibromyalgia; E53.8 Deficiency of other specified B group vitamins; N30.00 Acute cystitis without hematuria

== ENCOUNTER 2020-06-29 15:07 | Emergency (ER) | payer MEDICARE ==
[~2020-06-29] VITALS: Ht 152.4 cm; Wt 76.4 kg
[~2020-06-29 15:07] MED LIST changes: +IMITREX100 MG PO; +MACROBID100 MG PO; +PLAVIX75 MG PO
[2020-06-29 15:13] VITALS: Ht 152.4 cm; Wt 76.4 kg
[2020-06-29 16:13] LABS: ANION GAP 11.4 mmol/L (8-16); CALCIUM 8.7 mg/dL (8.5-10.1); POTASSIUM - SERUM 3.4 mmol/L (3.5-5.1)
[2020-06-29 16:19] LABS: ALBUMIN 3.1 g/dL (3.4-5.0); BILIRUBIN - TOTAL 0.49 mg/dL (0.2-1.3); PROTEIN - SERUM 6.6 g/dL (6.4-8.2)
[2020-06-29 16:40] LABS: BASOPHILS 0.2 % (0-2); EOSINOPHILS 1.1 % (0-7); HEMATOCRIT 44.5 % (36.0-48.0); HEMOGLOBIN 14.1 g/dL (12-16); IMMATURE GRANULOCYTES 0.2 % (0-5); LYMPHOCYTES 29.3 % (15-50); MCH 29.4 pg (26.0-34.0); MCHC 31.7 g/dL (31.0-37.0); MCV 92.7 fL (80.0-100.0); MEAN PLATELET VOLUME 10.4 fL (7.4-10.4); NEUTROPHILS 61.2 % (40-80); PLATELET COUNT 239 10x3/uL (130-400); WBC 11.4 10x3/uL (4.8-10.8)
[2020-06-29 16:53] LABS: BILIRUBIN NEGATIVE (NEGATIVE); KETONE NEGATIVE (NEGATIVE); NITRITE NEGATIVE (NEGATIVE); UROBILINOGEN NORMAL mg/dL (< 2)
[2020-06-29 16:54] LABS: WHITE CELLS - URINE 25-50 HPF (0-4)
[2020-06-29 16:55] LABS: BACTERIA FEW /HPF (NONE SEEN); EPITHELIAL CELLS 0-5 /hpf (0-5)
[2020-06-29] MEDS ORDERED: LEVAQUIN750 MG PO (17:07)
[2020-06-29 19:30] VITALS: BP 107/47
== END 2020-06-29 19:30 | disposition home or self-care (01) ==
LOC: D.ER 15:07
PROVIDERS: Family Medicine
DX: N39.0 Urinary tract infection, site not specified (principal); R33.9 Retention of urine, unspecified; I10 Essential (primary) hypertension